=== PATIENT | male | born 1975 | race Caucasian/White ===

== ENCOUNTER 2016-09-26 02:56 | Emergency (ER) | payer MEDICARE, MEDICAID ==
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
[2016-09-26] MEDS ORDERED: 0.9 % SODIUM CHLORIDE 1,000 ML BAG IV ONE (03:14)
[2016-09-26] MEDS ORDERED: KETOROLAC 30 MG/ML VIAL IVP ONE (03:23)
[2016-09-26 03:27] LABS: BASO % 0.3 % (0-6); HEMATOCRIT 45.4 % (42.0-52.0); HEMOGLOBIN 15.1 gm/dl (14.0-18.0); LYMPH % 15.7 % (16-45); MEAN CELL VOLUME 93.2 fl (81-97); MEAN CORPUSCULAR HGB CONC 33.3 g/dl (32-36); MEAN PLATELET VOLUME 9.6 fl (7.4-10.4); PLATELET COUNT 248 K/uL (130-400); RED BLOOD COUNT 4.87 M/uL (4.40-5.70); RED CELL DISTRIBUTION WIDTH 14.4 % (11.5-14.5); WHITE BLOOD COUNT W/O DIFF 8.9 K/uL (4.2-12.2)
[2016-09-26 03:38] LABS: ALBUMIN 4.3 gm/dL (3.5-5.0); ALKALINE PHOSPHATASE 67 U/L (38-126); ALT/SGPT 38 U/L (21-72); ANION GAP 14.5 (7-16); AST/SGOT 36 U/L (17-59); BILIRUBIN,TOTAL 0.26 mg/dL (0.2-1.3); BLOOD UREA NITROGEN 6 mg/dL (9-20); CARBON DIOXIDE 27.5 mmol/L (22-30); CREATININE 0.9 mg/dL (0.66-1.25); EST GLOMERULAR FILTRATION RATE > 60 ml/min; GLUCOSE,RANDOM 135 mg/dL (70-110)
[2016-09-26 04:25] LABS: URINE APPEARANCE CLEAR; URINE BILIRUBIN NEGATIVE (NEGATIVE); URINE BLOOD TRACE-I (NEGATIVE); URINE COLOR YELLOW; URINE GLUCOSE (UA) NEGATIVE (NEGATIVE); URINE KETONE NEGATIVE (NEGATIVE); URINE LEUKOCYTE ESTERASE NEGATIVE (NEGATIVE); URINE NITRITE NEGATIVE (NEGATIVE); URINE PROTEIN NEGATIVE (NEGATIVE); URINE UROBILINOGEN 0.2 E.U./dL (0.20 - 1.00)
[2016-09-26 04:26] LABS: URINE BACTERIA NONE SEEN; URINE EPITHELIAL CELLS 0 - 2 (FEW); URINE RBC 0 - 2 (NONE SEEN); URINE WBC 0 - 2 (0-2/hpf)
[2016-09-26] MEDS ORDERED: ACETAMINOPHEN/CODEINE TABLET PO ONE (04:55)
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
== END 2016-09-26 05:09 | disposition left against medical advice (07) ==
LOC: ER 02:56
DX: S12.200A Unspecified displaced fracture of third cervical vertebra, initial encounter for closed fracture (principal); S22.32XA Fracture of one rib, left side, initial encounter for closed fracture; S22.019A Unspecified fracture of first thoracic vertebra, initial encounter for closed fracture; S22.039A Unspecified fracture of third thoracic vertebra, initial encounter for closed fracture; S22.059A Unspecified fracture of T5-T6 vertebra, initial encounter for closed fracture; S22.049A Unspecified fracture of fourth thoracic vertebra, initial encounter for closed fracture; S22.069A Unspecified fracture of T7-T8 vertebra, initial encounter for closed fracture; S22.079A Unspecified fracture of T9-T10 vertebra, initial encounter for closed fracture; V86.59XA Driver of other special all-terrain or other off-road motor vehicle injured in nontraffic accident, initial encounter
CPT/HCPCS: 99284 ×2; 96374; 85025; 80076; 80048; 81001; 72125; 71250; 70450; J1885; J7030

== ENCOUNTER 2016-11-13 07:39 | Emergency (ER) | payer MEDICARE, MEDICAID ==
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
== END 2016-11-13 08:35 | disposition home or self-care (01) ==
LOC: ER 07:39
DX: G89.21 Chronic pain due to trauma (principal); M54.2 Cervicalgia; M54.6 Pain in thoracic spine; R07.81 Pleurodynia; M25.512 Pain in left shoulder
CPT/HCPCS: 99282

== ENCOUNTER 2017-03-26 04:51 | Emergency (ER) | payer MEDICARE, MEDICAID ==
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
[2017-03-26] MEDS: HYDROCODONE/APAP 5/325MG TABLET PO ONE (05:52)
== END 2017-03-26 05:53 | disposition home or self-care (01) ==
LOC: ER 04:51
DX: G89.21 Chronic pain due to trauma (principal); M54.6 Pain in thoracic spine; R07.81 Pleurodynia
CPT/HCPCS: 99282